=== PATIENT | female | born 1970 | race Caucasian/White ===

== ENCOUNTER → 2019-01-19 10:35 | Outpatient (CLI) | payer OTHER, SELFPAY ==
[2019-01-10 07:58] VITALS: BMI 18.6
--- NOTE | 2019-01-19 10:39 | RAD_ITS ---
STUDY: X-RAY - RIGHT HUMERUS REASON FOR EXAM: Female, 48 years old. Soft tissue mass in the axillary region. TECHNIQUE: 2 view(s) of the humerus. COMPARISON: None. FINDINGS: Normal visualized humerus. There is no demonstrated fracture or osseous destructive process. There is no demonstrated soft tissue abnormality. RAD/Humerus min 2 Views IMPRESSION: Normal x-ray examination of the humerus. Electronically Signed: Brian You, at 12:37 EDT , Service support ,
== END ==
PROVIDERS: Family Provider Family Medicine; PCP Family Medicine; Referring Provider Surgery; Visit Provider Surgery
DX: R22.31 Localized swelling, mass and lump, right upper limb (principal)
CPT/HCPCS: 73060

== ENCOUNTER → 2019-01-26 | Outpatient (CLI) | payer OTHER, SELFPAY ==
[2019-01-10 07:58] VITALS: BMI 18.6
--- NOTE | 2019-01-26 14:23 | CT_ITS ---
CT right upper extremity without IV contrast. TECHNIQUE: Multiple CT images were obtained of the right upper extremity without IV contrast with multidimensional reconstructions performed. FINDINGS: There is a 3.9 x 3 x 4.8 cm oval subcutaneous mass in the right axillary fat. There is increased density throughout, although the lesion appears predominantly fat. No additional associated lesions are present. The border is smooth. Orientation is parallel to the dermal plane. CT/Extremity Upper WITH Contrast IMPRESSION: Axillary mass as described above which could represent lipoma or fibrous lesion, although CT appearance is not definitive. Surgical consultation is suggested. Electronically Signed: Jay Houston, at 16:35 EDT Tel , Service support ,
== END | disposition home or self-care (01) ==
PROVIDERS: Family Provider Family Medicine; PCP Family Medicine; Referring Provider Surgery; Visit Provider Surgery
DX: R22.31 Localized swelling, mass and lump, right upper limb (principal)
CPT/HCPCS: 73201; Q9967

== ENCOUNTER → 2019-02-01 08:20 | Outpatient (CLI) | payer OTHER, SELFPAY ==
--- NOTE | 2019-02-01 08:20 | AXNB_PTH ---
PATIENT: GHAZAL HERNANDEZ LOC: [facility] U#:[id number] AGE/SX: 55/F ROOM: RE02/01/[address]: Dr. Alex Guajardo MD : 1970 BED: DIS: SPEC #: [id number] RECD: 02/01/19 15:22 STATUS: JENNIFER EM #: [id number] LINDA: 02/01/19 08:[address]: Alex Guajardo DEPT: SURGICAL PATHOLOGY RECD BY: Russell Carpenter ENTERED: 02/02/19 09:03 SP TYPE: AX NODE BX OTHR DR: Dr. Omero Blackwell MD Tissues: Axillary lymph node, NOS Procedures: Surgery Specimen Level IV HEADER OPERATION: Ultrasound guided right axillary needle core biopsy PRE-OP DIAGNOSIS: Mass of soft tissue of right upper extremity R22.31 TISSUE SUBMITTED: Needle core biopsy of right axillary mass ISCHEMIC TIME: <30 seconds FIXATION TIME: 59 hours MICROSCOPIC DIAGNOSIS Right axillary mass, ultrasound-guided needle core biopsy: Fragment of fibrofatty tissue. No evidence of malignancy. See comment. AM:bao 02/05/19 COMMENT Clinical correlation is suggested. Case has been reviewed in consultation with Dr. Stone who concurs with the above diagnosis. JAYY:MADHU MICROSCOPIC DESCRIPTION Slides are reviewed. GROSS DESCRIPTION Received in fixative is one container labeled with the patient's name and designated right axilla biopsy. The specimen consists of an elongated piece of neal soft tissue measuring 1 cm in length and 0.1 cm in diameter. The specimen is totally submitted in one cassette. / MADHU:bao 02/02/19 TC:5 CPT: 15732
[2019-02-01 08:22] VITALS: BMI 18.6
== END ==
PROVIDERS: Family Provider Family Medicine; PCP Family Medicine; Referring Provider Surgery; Visit Provider Surgery
DX: R22.31 Localized swelling, mass and lump, right upper limb (principal)
CPT/HCPCS: 88305

== ENCOUNTER 2019-07-09 07:37 | Day surgery (SDC) | payer OTHER, SELFPAY ==
[2019-05-07 10:19] VITALS: BMI 18.6
--- NOTE | 2019-07-02 04:36 | HP_ITS ---
Intake Vital Signs 07/02/19 Height 5 ft 6 in 07/02/19 Weight: 115 lb 07/02/19 BMI 18.6 07/02/19 BP 132/72 H 07/02/19 Blood Pressure Location Lt brachial 07/02/19 Position Sitting 07/02/19 Respiration 18 Intake Visit Reasons: update h&p r axillary mass excision 12 RC Chief Complaint: neck and low back pain Care Nurse Rn Required: No Is patient in pain?: No Allergies No Known Allergies Allergy (Verified 07/02/19 13:01) Medications citalopram 10 mg tablet 10 mg PO DAILY 01/10/19 [History Confirmed 07/02/19] levothyroxine 75 mcg capsule 75 mcg PO DAILY 01/10/19 [History Confirmed 07/02/19] liothyronine 5 mcg tablet 5 mcg PO DAILY 01/10/19 [History Confirmed 07/02/19] [facility] Medical History Mass of soft tissue of right upper extremity (Acute) Back pain (Acute) Bilateral headaches (Acute) GERD (gastroesophageal reflux disease) (Acute) Hypothyroidism (Acute) Surgical History history of finger surgery (Acute) Family History Father Diabetes Thyroid disorder Social History (Updated 07/02/19 @ 16:36 by Amy Bragg PA-C) Smoking Status: Never smoker alcohol intake: current HPI HPI HPI: GHAZAL HERNANDEZ, is a 49 F who presents to the office today for HPI HPI Surgical H&P: Yes HPI: GHAZAL HERNANDEZ, is a 49 F who presents to the office today for an update history and physical. Patient denies recent hospitalizations or illnesses. Patient notes occasional pain in the right axilla. Patient denies enlargement of the mass. Needle core biopsy was completed the same day as her last visit in January confirming this area was consistent with a lipoma. Patient's previous history per Dr. Guajardo: GHAZAL HERNANDEZ, is a 48 F who presents to the office today for ongoing surgical treatment of a right axillary soft tissue mass. The patient had a recent CT scan at my request with the following report. [facility] Imaging Services [address] [place] [address] Extremity Upper WITH Contrast MR#: [id number] Name: GHAZAL HERNANDEZ ANNRep #:[id number] : 1970F 48 From: Jay Houston MD PCP:Omero Blackwell MD Status:REG CLI Study:Extremity Upper WITH Contrast Date of Exam:01/26/19 Exam#[id number] Ordering Dr: Alex Guajardo MD CT right upper extremity without IV contrast. TECHNIQUE: Multiple CT images were obtained of the right upper extremity without IV contrast with multidimensional reconstructions performed. FINDINGS: There is a 3.9 x 3 x 4.8 cm oval subcutaneous mass in the right axillary fat. There is increased density throughout, although the lesion appears predominantly fat. No additional associated lesions are present. The border is smooth. Orientation is parallel to the dermal plane. CT/Extremity Upper WITH Contrast IMPRESSION: Axillary mass as described above which could represent lipoma or fibrous lesion, although CT appearance is not definitive. Surgical consultation is suggested. Electronically Signed: Jay Houston, at 16:35 EDT Tel , Service support , ROS General General: Yes fatigue; no weight change, appetite, colon cancer, breast cancer or weakness HEENT HEENT: No difficulty swallowing, eye injury, eye surgery, swollen glands or hoarseness Endo Endocrine: Yes thyroid disease; no diabetes mellitus, thyroid cancer, Hair loss, heat intolerance or cold intolerance Musc Musculoskeletal: Yes back problems; no arthritis, rheumatoid arthritis, gout or joint pain Additional Details: right axillary mass Cardio Cardiovascular: No murmur, pacemaker, heart disease, atrial fibrillation, high blood pressure, heart attack, heart stent, palpitations, shortness of breat with exertion or chest pain Resp Respiratory: Yes shortness of breath, No sleep apnea, No cough, No COPD, No asthma, No emphysema, No wheezing Gastro Gastrointestinal: No abdominal pain, No nausea or vomiting, No diarrhea, No constipation, No blood in stool, No acid reflux, No hemorrhoids, No ulcers, No gallbladder problem, No black,tarry stools Neuro Neurologic: No weakness Exam Const General: cooperative, healthy appearing, comfortable, no acute distress [facility] Head: normal to inspection Eyes General: appearance normal, both eyes and all related structures Neck Neck: normal visual inspection Neck mass: No Resp Effort & Inspection: normal respiratory effort Auscultation: clear to auscultation bilaterally Cardio Rate: regular rate Rhythm: regular rhythm Heart Sounds: no murmurs GI Inspection: normal to inspection Palpation: soft Auscultation: normal bowel sounds Skin Other: Right axilla- palpable mass. Soft, movable Neuro General: no focal motor deficits, CN's II-XI intact bilaterally Extrem General: normal to inspection Psych Appearance: grossly normal Affect: normal affect Assessment & Plan Problems 1. Mass of soft tissue of right upper extremity R22.[address] Guajardo will plan to perform a complete excision of the right axillary mass. Procedure details, risks and benefits have been reviewed with the patient including the possibility of drain placement. Patient has had the opportunity to ask and have questions answered. Patient verbally understands and agrees with the plan. Plan Detail Goals Decrease pain Decrease spasm Decrease inflammation Improve workability Barriers Bulging cerv. disc Decrease L5/S1 disc height Coding Level of Care Code No Charge Diagnoses Mass of soft tissue of right upper extremity R22.31 Comment Update H&P 07/02/19 5657 <Electronically signed by Amy al PA-C> Date _ Amy Bragg PA-C
[2019-07-02 13:02] VITALS: BMI 18.6
--- NOTE | 2019-07-09 | IMM_PTH ---
PATIENT: GHAZAL HERNANDEZ [place] [facility] [id number] AGE/SX: 49/F ROOM: RE07/09/[address]: Dr. Alex Guajardo MD : 1970 BED: DIS: 07/09/2019 SPEC #: [id number] RECD: 07/10/19 12:05 STATUS: JENNIFER REBlair #: [id number] LINDA: 07/09/19 00:[address]: Alex Guajardo DEPT: IMMUNOHISTOCHEMISTRY RECD BY: Zeynep Monae ENTERED: 07/10/19 12:07 SP TYPE: IMMUNO OTHR DR: Dr. Omero Blackwell MD Tissues: Right upper extremity Procedures: SMA (add) MACRO (add) P53 (add) Vimentin (add) NEUROFIL (add) Pankeratin (initial) S-100 (add) PHYSICIAN & INSTITUTION [place] [address] SPECIMEN INFORMATION: Tissue Source: Right upper arm/axillary mass Clinical Info: Mass of soft tissue of right upper extremity Specimen Number: [id number] #2 CPT code: 13806, 25515 x6 METHODOLOGY: Deparaffinized sections of prefer/formalin-fixed tissue or PAP/DQ stained slides are incubated with monoclonal/polyclonal antibodies/oligonucleotide probes. Localization is made via biotin free immunoperoxidase method. Appropriate controls are performed and reacted as expected. Results on target cell population are indicated in the following table: RESULTS: ANTIBODY / CLONE RESULT Block 2 AE1-3 (AE1/AE3/PCK26) negative Vimentin (V9) positive Macro (HAM-56) negative Actin (1A4) negative S-100 (4C4.9) positive Neurofil (2F11) negative P53 (DO-7) negative These tests were developed and their performance characteristics determined by [facility]. They may not have been cleared or approved by the U.S. Food and Drug Administration. The FDA has determined that such clearance or approval is not necessary. The above immunohistochemical/dualISH markers are ordered and reviewed by the Pathologist. INTERPRETATION: Right upper arm/axillary mass, excision: Consistent with fibrolipoma. AM:bao 07/12/19 Case has been reviewed in consultation with Dr. Stone who concurs with the above diagnosis. IDC:MADHU
[2019-07-09 07:56] VITALS: BP 116/61; PULSE 74; RESP 16; TEMP 37; O2SAT 97; BMI 19.3
[2019-07-09 07:58] LABS: Internal QC Validated? YES +Cl - CLEAR BKGD; Pregnancy, Urine Negative Negative
[2019-07-09] MEDS: Lactated Ringers 1,000 ML 100 ML IV (08:02)
--- NOTE | 2019-07-09 09:45 | MASS_PTH ---
PATIENT: GHAZAL HERNANDEZ [place] [facility] [place][id number] AGE/SX: 49/F ROOM: RE07/09/[address]: Dr. Alex Guajardo MD : 1970 BED: DIS: 07/09/2019 SPEC #: [id number] RECD: 07/09/19 13:53 STATUS: JENNIFER REBlair #: [id number] LINDA: 07/09/19 09:[address]: Alex Guajardo DEPT: SURGICAL PATHOLOGY RECD BY: Russell Carpenter ENTERED: 07/09/19 14:22 SP TYPE: Mass OTHR DR: Dr. Omero Blackwell MD Tissues: Skin of upper extremity, NOS Procedures: Surgery Specimen Level IV HEADER OPERATION: Excision right upper arm/axillary mass PRE-OP DIAGNOSIS: Mass of soft tissue of right upper extremity R22.31 TISSUE SUBMITTED: Right upper arm/axillary mass MICROSCOPIC DIAGNOSIS Right upper arm/axillary mass, excision: Consistent with fibrolipoma. See comment. AM:bao 07/10/19 COMMENT Immunohistochemistry ([id number]) supports the above diagnosis. Case has been reviewed in consultation with Dr. Stone who concurs with the above diagnosis. IDC:SJ MICROSCOPIC DESCRIPTION Slides are reviewed. GROSS DESCRIPTION Received in fixative is one container labeled with the patient's name and designated right upper arm/axillary mass. The specimen consists of an ovoid fragment of yellow-pink soft tissue measuring 5 x 4 x 4 cm. The external surface is inked and the specimen serially sectioned to reveal homogenous yellow cut surfaces. No areas of cyst formation, necrosis or myxoid changes are identified. Floorworker sections are submitted in six cassettes. / AM:bao 07/09/19 TC:1 CPT: 07428
--- NOTE | 2019-07-09 11:05 | PCM.HP.BLA ---
Problem List (1) Mass of soft tissue of right upper extremity Status: Acute History and Physical Date of Admission: 07/09/19 Intake Visit Reasons: update h&p r axillary mass excision 07-09 Chief Complaint: neck and low back pain Guard Manager Required: No Is patient in pain?: No Allergies No Known Allergies Allergy (Verified 07/02/19 13:01) Medications citalopram 10 mg tablet 10 mg PO DAILY 01/10/19 [History Confirmed 07/02/19] levothyroxine 75 mcg capsule 75 mcg PO DAILY 01/10/19 [History Confirmed 07/02/19] liothyronine 5 mcg tablet 5 mcg PO DAILY 01/10/19 [History Confirmed 07/02/19] [facility] Medical History Mass of soft tissue of right upper extremity (Acute) Back pain (Acute) Bilateral headaches (Acute) GERD (gastroesophageal reflux disease) (Acute) Hypothyroidism (Acute) Surgical History history of finger surgery (Acute) Family History Father Diabetes Thyroid disorder Social History (Updated 07/02/19 @ 16:36 by Amy Bragg PA-C) Smoking Status: Never smoker alcohol intake: current HPI HPI HPI: GHAZAL HERNANDEZ, is a 49 F who presents to the office today for HPI HPI Surgical H&P: Yes HPI: GHAZAL HERNANDEZ, is a 49 F who presents to the office today for an update history and physical. Patient denies recent hospitalizations or illnesses. Patient notes occasional pain in the right axilla. Patient denies enlargement of the mass. Needle core biopsy was completed the same day as her last visit in January confirming this area was consistent with a lipoma. Patient's previous history per Dr. Guajardo: GHAZAL HERNANDEZ, is a 48 F who presents to the office today for ongoing surgical treatment of a right axillary soft tissue mass. The patient had a recent CT scan at my request with the following report. [facility] Imaging Services [address] [place] [address] Extremity Upper WITH Contrast MR#: [id number] Name: GHAZAL HERNANDEZ ANNRep #:[id number] : 1970F 48 From: Jay Houston MD PCP:Omero Blackwell MD Status:REG CLI Study:Extremity Upper WITH Contrast Date of Exam:01/26/19 Exam#[id number] Ordering Dr: Alex Guajardo MD CT right upper extremity without IV contrast. TECHNIQUE: Multiple CT images were obtained of the right upper extremity without IV contrast with multidimensional reconstructions performed. FINDINGS: There is a 3.9 x 3 x 4.8 cm oval subcutaneous mass in the right axillary fat. There is increased density throughout, although the lesion appears predominantly fat. No additional associated lesions are present. The border is smooth. Orientation is parallel to the dermal plane. CT/Extremity Upper WITH Contrast IMPRESSION: Axillary mass as described above which could represent lipoma or fibrous lesion, although CT appearance is not definitive. Surgical consultation is suggested. Electronically Signed: Jay Houston, at 16:35 EDT Tel , Service support , ROS General General: Yes fatigue; no weight change, appetite, colon cancer, breast cancer or weakness HEENT HEENT: No difficulty swallowing, eye injury, eye surgery, swollen glands or hoarseness Endo Endocrine: Yes thyroid disease; no diabetes mellitus, thyroid cancer, Hair loss, heat intolerance or cold intolerance Musc Musculoskeletal: Yes back problems; no arthritis, rheumatoid arthritis, gout or joint pain Additional Details: right axillary mass Cardio Cardiovascular: No murmur, pacemaker, heart disease, atrial fibrillation, high blood pressure, heart attack, heart stent, palpitations, shortness of breat with exertion or chest pain Resp Respiratory: Yes shortness of breath, No sleep apnea, No cough, No COPD, No asthma, No emphysema, No wheezing Gastro Gastrointestinal: No abdominal pain, No nausea or vomiting, No diarrhea, No constipation, No blood in stool, No acid reflux, No hemorrhoids, No ulcers, No gallbladder problem, No black,tarry stools Neuro Neurologic: No weakness Exam Const General: cooperative, healthy appearing, comfortable, no acute distress HENNJ Head: normal to inspection Eyes General: appearance normal, both eyes and all related structures Neck Neck: normal visual inspection Neck mass: No Resp Effort & Inspection: normal respiratory effort Auscultation: clear to auscultation bilaterally Cardio Rate: regular rate Rhythm: regular rhythm Heart Sounds: no murmurs GI Inspection: normal to inspection Palpation: soft Auscultation: normal bowel sounds Skin Other: Right axilla- palpable mass. Soft, movable Neuro General: no focal motor deficits, CN's II-XI intact bilaterally Extrem General: normal to inspection Psych Appearance: grossly normal Affect: normal affect Assessment & Plan Problems 1. Mass of soft tissue of right upper extremity R22.[address] Guajardo will plan to perform a complete excision of the right axillary mass. Procedure details, risks and benefits have been reviewed with the patient including the possibility of drain placement. Patient has had the opportunity to ask and have questions answered. Patient verbally understands and agrees with the plan. Plan Detail Goals Decrease pain Decrease spasm Decrease inflammation Improve workability Barriers Bulging cerv. disc Decrease L5/S1 disc height Coding Level of Care Code No Charge Diagnoses Mass of soft tissue of right upper extremity R22.31 Comment Update H&P 07/02/19 6614 <Electronically signed by Amy Bragg PA-C> Date Amy Bragg PA-C Date: Time: Amy Bragg PA-C CC: ~ I have re-examined the patient. There are no clinical changes since date of exam.
--- NOTE | 2019-07-09 11:23 | PCM.DC.GS ---
Discharge Diet: Light diet - advance as tolerated - if you have questions about your diet instructions, please talk to you doctor. Discharge Activity: May Not Drive - for 2-3 days or while taking narcotic pain medicine. May shower in (days): 1 - If drain is in place, then no showers please Lifting Restrictions: 10 pounds Call your doctor if your incision/area has: Continuous Slow Oozing, Sudden Increased Bleeding, Increased Pain/ Swelling, Increased Redness, Foul Smelling Discharge Call your doctor if you observe: Fever of 101 or Higher Suture Line Care: Avoid Pulling/Pushing, Avoid Pinching/Bending Additional Dressing/Incision Instructions:: You may remove the large tape white dressing tomorrow morning. Leave the plastic dressing in place for 2-3 additional days. You may shower over the plastic dressing. No lifting more than 10 pounds. Allergies/Adverse Reactions: Allergies No Known Allergies Allergy (Verified 07/09/19 07:56) Medications to take at Discharge citalopram 10 mg tablet 10 mg PO DAILY 01/10/19 levothyroxine 75 mcg capsule 75 mcg PO DAILY 01/10/19 liothyronine 5 mcg tablet 5 mcg PO DAILY 01/10/19 Ibuprofen 800 mg PO TID PRN 4 Days #15 tab 07/09/19 The following prescriptions were given: Ibuprofen 800 mg PO TID PRN 4 Days #15 tab PRN Reason: Pain Or Fever Transmission Status: Received by [facility] Primary Care Physician: Omero Blackwell MD [Primary Care Provider] - Test Results: Test results from this visit will be discussed in further detail at your follow-up appointment, if applicable. Please Follow Up With: Alex Guajardo MD - [phone] When: Call to make an appointment to be seen in about 10 days.
[2019-07-09] MEDS: Bupivacaine Mpf 0.5% 30 ML VIAL (12:09)
--- NOTE | 2019-07-09 12:12 | PCM.OPRPT ---
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 49-year-old female taken the operating place upon the table. She underwent general anesthesia. The right arm was carefully placed in an arm villafuerte. The right axillary upper arm area was sterilely prepped and draped. An oblique incision was made over the large mass and then electrocautery dissection and sharp and blunt dissection was used to carefully tease free down deeply into the right superficial posterior axillary area. The fascia was penetrated in order to release this fibrofatty mass. It was densely adherent and careful dissection was required for complete removal. Hemostasis was obtained with electrocautery and interrupted 3-0 Vicryl [id number] sutures. The specimen was felt to been excised intact. Palpation and visualization failed to reveal any residual tissue. The deep subcutaneous tissues were partially approximated with interrupted 3-0 Vicryl. Subdermal tissues approximated the same. Skin edges approximated running septic or 4-0 Monocryl. The deep and balwinder-incisional areas anesthetized with 30 cc of 0.5% Marcaine. Steri-Strips Telfa OpSite bulky dry dressings applied as a pressure dressing. Sponge and instrument and needle counts were reported to the surgeon be correct. Blood loss minimal. She tolerated the procedure well was taken to the recovery area in satisfactory condition. Specimen subfascial mass. Drains none. Blood loss minimal. Alex Guajardo M.D., F.A.C.S. Type of Anesthesia:: General Anesthesiologist: Fadumo Soriano
[2019-07-09 12:23] VITALS: BP 116/61; BP 123/57; PULSE 81; RESP 16; TEMP 36.3; O2SAT 100
[2019-07-09 12:30] VITALS: BP 116/61; BP 123/70; PULSE 81; RESP 16; O2SAT 99
[2019-07-09 12:45] VITALS: BP 103/59; BP 116/61; PULSE 78; RESP 16; O2SAT 96
[2019-07-09 12:53] VITALS: BP 114/65; BP 116/61; PULSE 80; RESP 16; TEMP 37.1; O2SAT 98
[2019-07-09 13:50] VITALS: BP 116/61; BP 95/49; PULSE 72; RESP 16; TEMP 37.4; O2SAT 95
== END 2019-07-09 13:56 | disposition home or self-care (01) ==
LOC: SDC 07:39 → AC 07:39
PROVIDERS: Anesthesiology; Family Provider Family Medicine; PCP Family Medicine; Referring Provider Surgery; Visit Provider Surgery
PROC: (CPT 21554; principal; 2019-07-09 09:30)
DX: D17.21 Benign lipomatous neoplasm of skin and subcutaneous tissue of right arm (principal); M79.621 Pain in right upper arm; E03.9 Hypothyroidism, unspecified; K21.9 Gastro-esophageal reflux disease without esophagitis; F32.9 Major depressive disorder, single episode, unspecified; Z79.899 Other long term (current) drug therapy
CPT/HCPCS: 21554; 81025; 88305; 88341; 88342; J7120; J2405

== ENCOUNTER → 2019-09-17 10:12 | Outpatient (CLI) | payer OTHER, SELFPAY ==
[2019-09-17 09:30] VITALS: BMI 19.3
[2019-09-17 11:46] LABS: Vitamin B12 464 pg/mL (211-911); Vitamin D,25 Hydroxy 27.4 ng/mL
[2019-09-17 11:53] LABS: Estradiol 33.9 pg/mL; Ferritin 78 ng/mL (8-252); Follicle Stimulating Hormone 123.1 mIU/mL; Free T3 2.7 pg/mL (2.18-3.98); T4 Free Direct 0.95 ng/dL (0.76-1.46); Thyroid Stim Hormone (TSH) 0.16 uIU/mL (0.358-3.74)
== END ==
PROVIDERS: PCP Family Medicine; Referring Provider Internal Medicine Endocrinology, Diabetes & Metabolism; Visit Provider Internal Medicine Endocrinology, Diabetes & Metabolism
DX: E03.8 Other specified hypothyroidism (principal); E06.3 Autoimmune thyroiditis; E55.9 Vitamin D deficiency, unspecified; N91.2 Amenorrhea, unspecified; R53.81 Other malaise; R53.83 Other fatigue
CPT/HCPCS: 36415; 82306; 82533; 82607; 82670; 82728; 83001; 84439; 84443; 84481

== ENCOUNTER → 2020-01-14 11:00 | Outpatient (CLI) | payer OTHER, SELFPAY ==
[2020-01-14 10:51] VITALS: BMI 19.3
[2020-01-14 13:32] LABS: AST(SGOT) 25 U/L (15-37); Alanine Aminotransfer ALT/SGPT 26 U/L (13-56); Albumin, Serum 3.8 g/dL (3.2-5.0); Alkaline Phosphatase 131 U/L (45-117); Anion Gap 2 (5-15); BUN 18 mg/dL (7-18); BUN/Creat Ratio 22.8 RATIO (10-20); Chloride 105 mmol/L (98-107); Creatinine, Serum 0.79 mg/dL (0.55-1.02); EST Glomerular Filtration Rate 82 mL/min (>60); Est Glom Filt Rate - Afr Amer 100 mL/min (>60); Free T3 2.4 pg/mL (2.18-3.98); Globulin 3.9 g/dL (2.2-4.2); Glucose 101 mg/dL (74-106); Potassium 4.2 mmol/L (3.5-5.1); Protein, Total 7.7 g/dL (6.4-8.2); Sodium Level 140 mmol/L (136-145); T4 Free Direct 1.03 ng/dL (0.76-1.46); Thyroid Stim Hormone (TSH) 0.64 uIU/mL (0.358-3.74)
== END ==
PROVIDERS: PCP Family Medicine; Referring Provider Internal Medicine Endocrinology, Diabetes & Metabolism; Visit Provider Internal Medicine Endocrinology, Diabetes & Metabolism
DX: E03.8 Other specified hypothyroidism (principal); E06.3 Autoimmune thyroiditis
CPT/HCPCS: 36415; 80053; 84439; 84443; 84481

== ENCOUNTER → 2020-01-23 | Outpatient (CLI) | payer OTHER, SELFPAY ==
[2020-01-23 10:33] VITALS: BMI 19.3
[2020-02-04 14:08] LABS: HPV Genotype 16, Aptima Negative (Negative)
[2020-02-04 15:25] LABS: HPV APTIMA, High Risk Positive (Negative); HPV Genotype 18,45 Aptima Negative (Negative)
== END | disposition home or self-care (01) ==
LOC: LABSPEC 16:49
PROVIDERS: PCP Family Medicine; Referring Provider Nurse Practitioner Women's Health; Visit Provider Nurse Practitioner Women's Health
DX: Z12.4 Encounter for screening for malignant neoplasm of cervix (principal)
CPT/HCPCS: 87624; 88175; G0145

== ENCOUNTER 2020-08-04 10:00 | Outpatient (RCR) | payer OTHER, SELFPAY ==
--- NOTE | 2020-07-07 13:55 | HP.PTEVAL_ITS ---
Patient's Visit Information GHAZAL HERNANDEZ is a 50 year old F referred to Physical Therapy by Dr. Casandra Hannon DC with a diagnosis of SEGMENTAL AND SOMATIC DYSFUNCTION THORACIC,LUMBAR CERVICAL,BULDING DISC. Date of Evaluation: 07/07/20 Physical Therapist: Varun Merlos, PT, Cert MDT, OCS - Visit Plan Frequency: 1-2x /Week Duration: 4 Weeks Plan: PT INTERVETIONS MOBLITY FOR SPINE,POSTUAL EX'S,DLS ABD/BACK,CERVICAL ROM - Subjective This 50 y/o female presents to physical therapy with cervical ,thoracic and lumbar pain. Patient has had lumbar pain for many years . 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 Patient pain located neck an dlumbar. Patient has cervical HNP . Patient has seen chriporactor . Aggraveting factors work demnads bus driving. Alleviating factors chiropractors many years. Alleviating factors standing,lfting ,walking. Alleviating factors sitting. Patient has occasional parathesia in arms. Patient has BARRERA /migraines. Patient denies nausea/tinutus. Coughing/sneezing+. Bowel/bladder +. Patient symptoms affects sleeping. Patient has had x-rays. Patient no MEDS. Patient has no trauma.Patient condtion of back and neck pain afects ADLS and housework tasks. Patient co ndition affects QOL. VOCATION: School bus. SOCIAL: marries - Pain Bilateral Buttocks Pain Intensity (Out of 10): 0 Pain Intensity Range: 10 Back Pain Intensity (Out of 10): 3 Pain Intensity Range: 10 Bilateral Neck Pain Intensity (Out of 10): 0 Pain Intensity Range: 10 - Objective POSTURE:mild foward posture. GAIT: reciprocal pattern. PALPATION: tender lumbar/cervical ,UT/levator. NEURO: denies parathesia/tingling ,reflexes C5-6-7 2/3,L3-4,L4-5,L5-S1 2/3. SYMMRIES: align. AROM: BUE/LW WFL. FLEXABLITY: hams WFL,piriformios mild tight. CERVICAL ROM: flexion mild tight,lateral flexion min ,rotation min tight,extension min tight. LUMBAR ROM: flexion mild loss,extension mod loss pain at ER,side glides min loss - Special Tests C/S Radiculapathy - Left Upper limb tension test: Negative C/S Radiculapathy - Right Upper limb tension test: Negative C/S Radiculapathy - Left [place]: Negative C/S Radiculapathy - Right [place]: Negative C/S Radiculapathy - Left Cervical distraction: Negative C/S Radiculapathy - Right Cervical distraction: Negative Sharp Jamari: Negative Vertebral Artery Test: Negative Alar Ligament Test: Negative Cervical Sitting: Protrusion - Mechanical Response: No effect Cervical Sitting: Protrusion - Symptoms During Testing: No effect Cervical Sitting: Protrusion - Symptoms After Testing: No effect Cervical Sitting: Retraction - Mechanical Response: No effect Cervical Sitting: Retraction - Symptoms During Testing: Produces Cervical Sitting: Retraction - Symptoms After Testing: No effect Cervical Sitting: Retraction-Extension - Mechanical Response: No effect Cerv Sitting: Retraction-Extension - Symptoms During Testing: No effect Cerv Sitting: Retraction-Extension - Symptoms After Testing: No effect Cervical Sitting: Sidebend Right - Mechanical Response: No effect Cervical Sitting: Sidebend Right - Symptoms During Testing: No effect Cervical Sitting: Sidebend Right - Symptoms After Testing: No effect Cervical Sitting: Sidebend Left - Mechanical Response: No effect Cervical Sitting: Sidebend Left - Symptoms During Testing: No effect Cervical Sitting: Sidebend Left - Symptoms After Testing: No effect Cervical Sitting: Rotation Right - Mechanical Response: No effect Cervical Sitting: Rotation Right - Symptoms During Testing: No effect Cervical Sitting: Rotation Right - Symptoms After Testing: No effect Cervical Sitting: Rotation Left - Mechanical Response: No effect Cervical Sitting: Rotation Left - Symptoms During Testing: No effect Cervical Sitting: Rotation Left - Symptoms After Testing: No effect Cervical Sitting: Flexion - Mechanical Response: No effect Cervical Sitting: Flexion - Symptoms During Testing: No effect Cervical Sitting: Flexion - Symptoms After Testing: No effect Thoracic Sitting: Flexion - Mechanical Response: No effect Thoracic Sitting: Flexion - Symptoms During Testing: Increases Thoracic Sitting: Flexion - Symptoms After Testing: No worse Thoracic Sitting: Extension - Mechanical Response: No effect Thoracic Sitting: Extension - Symptoms During Testing: Increases Thoracic Sitting: Extension - Symptoms After Testing: No worse Thoracic Sitting: Right rotation - Mechanical Response: No effect Thoracic Sitting: Right Rotation - Symptoms During Testing: No effect Thoracic Sitting: Right Rotation - Symptoms After Testing: Better Thoracic Sitting: Left rotation - Mechanical Response: No effect Thoracic Sitting: Left Rotation - Symptoms During Testing: No effect Thoracic Sitting: Left Rotation - Symptoms After Testing: No effect L/S Slump test left side: Negative L/S Slump test right side: Negative L/S Left Straight Leg Raise: Negative Lumbar Standing: Flexion - Mechanical Response: No effect Lumbar Standing: Flexion - Symptoms During Testing: No effect Lumbar Standing: Flexion - Symptoms After Testing: No effect Lumbar Standing: Extension - Mechanical Response: No effect Lumbar Standing: Extension - Symptoms During Testing: Increases Lumbar Standing: Extension - Symptoms After Testing: No worse Lumbar Standing: Right Side Glides - Mechanical Response: No effect Lumbar Standing: Right Side [place] - Symptoms During Testing: No effect Lumbar Standing: Right Side [place] - Symptoms After Testing: No effect Lumbar Standing: Left Side [place] - Mechanical Response: No effect Lumbar Standing: Left Side [place] - Symptoms During Testing: No effect Lumbar Standing: Left Side [place] - Symptoms After Testing: No effect - Goals Goal 1:: Patient to be I with HEP. Goal Time Frame: 4-6 Weeks Goal 2:: Patient to impriove posture for ADLS and job demands Goal Time Frame: 4-6 Weeks Goal 3:: Patient to decrease neck and back pain by 50% or > to improve job demands. Goal Time Frame: 4-6 Weeks Goal 4:: Patient to improve lumbar and cervical ROM for function of recocovery Goal Time Frame: 4-6 Weeks Goal 5:: Patient to improve back owestry score by 5 pointrs or > to improve QOL. Goal Time Frame: 4-6 Weeks - Rehabilitation Potential Physical Therapy Diagnosis: This patient has postural deficits with weakk core along with decrease function of recovery for cervical and lumbar ,deficits with job demands with pain being more chronic thus benifit from skilled PT Rehabilitation Potential: Good - Anticipated Interventions Patient/Client Instruction: Educate patient on: Condition, Plan of Care For the Purpose of:: To decrease pain, To increase ROM, To improve muscle performance and motor function, To improve ability to perform ADL's, To increase tolerance to activity/condition/position, To improve performance and independence with ADL's, To improve ability of physical actions for home/community/work/leisure, To improve health of tissue, To decrease soft tissue restriction, To increase flexibility/ROM, To improve endurance, To improve ability to perform tasks related to life management Therapeutic Exercise to Include: Strength training, Body mechanics, Postural training, Flexibilty training, Active ROM, Dynamic Lumbar Stabilization For the Purpose of:: To decrease pain, To increase ROM, To improve muscle performance and motor function, To increase tolerance to activity/condition/position, To improve performance and independence with ADL's, To improve ability of physical actions for home/community/work/leisure, To improve health of tissue, To decrease soft tissue restriction, To increase flexibility/ROM, To improve health and function, To improve ability to perform tasks related to life management Thank you for the opportunity to evaluate your patient. For Medicare and Medicare HMO plans, please review the plan of care and approve it. It will need to be FAXED BACK to us at [phone] for Medicare purposes. For Medicare only, by signing this I certify the plan of care. Please let me know if there are questions or concerns regarding this plan of care. Physician Signature: Date:
--- NOTE | 2020-08-04 10:40 | HP.PTDCSUM ---
It has been my pleasure to treat GHAZAL HERNANDEZ referred by Dr. Casandra Hannon DC, with the diagnosis of SEGMENTAL AND SOMATIC DYSFUNCTION THORACIC,LUMBAR CERVICAL,BULDING DISC for a total of 5 visit(s). Discharge Date: 08/04/20 Please see the following information for a summary of their discharge status. Subjective: Reports today will be her last date due to financial concerns. She states she has stiffness in her low back. Bilateral Buttocks Pain Intensity (Out of 10): 0 Back Pain Intensity (Out of 10): 0 Bilateral Neck Pain Intensity (Out of 10): 0 % Improvement: 60 Objective/Function: AROM: lumbar flexion 75 %, lumbar ext 50%, sidebending 50%, rotation 50%. LE MMT: R hip flexion 5/5, quad 5/5, hams 5/5. L hip flexion 5/5, quad 5/5, hams 5/5. UE MMT: L shoulder flexion 5/5, abd 4/5, biceps 5/5. R shoulder flexion 5/5, abd 4/5, biceps 5/5. Cervical AROM: flexion 75%, ext 25 %, right rotation 50%, left rotation 50%, right sidebend 50%, left side bend 50% Goal 1:: Patient to be I with HEP. Goal Progress: Goal Met Goal 2:: Patient to impriove posture for ADLS and job demands Goal Progress: Goal Met Goal 3:: Patient to decrease neck and back pain by 50% or > to improve job demands. Goal Progress: Goal Met Goal 4:: Patient to improve lumbar and cervical ROM for function of recocovery Goal Progress: Progressing Goal 5:: Patient to improve back owestry score by 5 pointrs or > to improve QOL. Goal Progress: Goal Met Plan: D/C to HEP. Discharge Comments: HEP PROGRESSION If there are questions or concerns regarding this patient's physical therapy, please feel free to call me at [phone]. Thank you for the referral of this patient. Sincerely, Varun Merlos, PT, Cert MDT, OCS
== END 2020-08-04 19:00 | disposition home or self-care (01) ==
LOC: PT 10:00
PROVIDERS: PCP Family Medicine; Referring Provider Chiropractor; Visit Provider Chiropractor
DX: M99.02 Segmental and somatic dysfunction of thoracic region (principal); M99.03 Segmental and somatic dysfunction of lumbar region; M99.01 Segmental and somatic dysfunction of cervical region; M50.20 Other cervical disc displacement, unspecified cervical region
CPT/HCPCS: 97110; 97162; 97530